=== PATIENT | male | born 1940 | race Caucasian/White ===

== ENCOUNTER 2024-04-08 13:50 | Inpatient (IN) | payer MEDICARE, OTHER ==
[2024-04-08] VITALS (33 sets, daily range): BP systolic 67–159; BP diastolic 41–144; TEMP 97.2–97.8; O2SAT 84–100
[~2024-04-08] VITALS: Ht 170.2 cm; Wt 72.6 kg
[2024-04-08] MEDS: ALBUTEROL SULFATE 2.5 MG/3 ML NEBU NEB ONE (13:58)
[2024-04-08] MEDS: IPRATROPIUM BROMIDE 0.5 MG/2.5 ML NEBU NEB ONE (13:58)
[2024-04-08] MEDS ORDERED: IPRATROPIUM BROMIDE 0.5 MG/2.5 ML NEBU ONE ×2 (14:03)
[2024-04-08] MEDS ORDERED: ALBUTEROL SULFATE 2.5 MG/3 ML NEBU ONE (14:03)
[2024-04-08] MEDS ORDERED: methylPREDNISolone SOD SUCC 125 MG/2 ML VIAL ONE (14:08)
[2024-04-08] MEDS: methylPREDNISolone SOD SUCC 125 MG/2 ML VIAL IV ONE (14:08)
[2024-04-08 14:12] LABS: BASOPHILS # (AUTO) 0.2 K/UL (0.0-0.2); EOSINOPHILS # (AUTO) 0.1 K/uL (0.0-0.7); EOSINOPHILS % (AUTO) 0.6 % (0.0-7.0); HEMOGLOBIN 12.2 g/dL (12.5-16.3); LYMPHOCYTES # (AUTO) 3.4 K/uL (0.8-4.8); MEAN CORPUSCULAR HEMOGLOBIN 30.5 uug (23.8-33.4); MEAN CORPUSCULAR HGB CONC 32 g/dL (32.5-36.3); MEAN CORPUSCULAR VOLUME 95.3 fL (73.0-96.2); MONOCYTES # (AUTO) 1.5 K/uL (0.1-1.30); MONOCYTES % (AUTO) 6.7 % (0.0-11.0); NEUTROPHILS # (AUTO) 17.4 K/uL (1.8-8.9); NEUTROPHILS % (AUTO) 76.7 % (38.5-71.5); PLATELET COUNT (AUTO) 241 K/uL (152-348); RED BLOOD CELL COUNT(AUTO) 3.98 MIL/uL (4.06-5.63); RED CELL DISTRIBUTION WIDTH 14.6 % (12.1-16.2); WHITE BLOOD COUNT (AUTO) 22.6 K/uL (3.6-10.2)
[2024-04-08] MEDS: VANCOMYCIN IV 1,000 MG in IV DEXTROSE 5% 250 ML IV ONE (14:15)
[2024-04-08 14:38] LABS: ALANINE AMINOTRANSFERASE 12 U/L (16-63); ALBUMIN 2.6 g/dL (3.4-5.0); ALKALINE PHOSPHATASE 214 U/L (50-136); ASPARTATE AMINOTRANSFERASE 8 U/L (15-37); BILIRUBIN,TOTAL 0.3 mg/dL (0.2-1.0); CALCIUM 7.7 mg/dL (8.5-10.1); CARBON DIOXIDE 19 mmol/L (21-32); CHLORIDE 109 mmol/L (98-107); CREATININE 1.4 mg/dL (0.6-1.3); GLUCOSE 173 mg/dL (74-106); SODIUM SERUM 142 mmol/L (136-145); TOTAL PROTEIN, SERUM 6.2 g/dL (6.4-8.2); UREA NITROGEN, BLOOD 31 mg/dL (7-18)
[2024-04-08] MEDS: IV NORMAL SALINE 1000 ML BAG IV ONE (14:42)
[2024-04-08] MEDS ORDERED: PIPERACILLIN SODIUM/TAZO 3.375 GM VIAL ONE (14:43)
[2024-04-08 14:44] LABS: DIFFERENTIAL COMMENT 1
[2024-04-08] MEDS ORDERED: VANCOMYCIN 1000 MG VIAL ONE (14:44)
[2024-04-08 14:45] LABS: BILIRUBIN,DIRECT < 0.1 mg/dL (0.0-0.2)
[2024-04-08] MEDS ORDERED: MELA3CAP2 PO (14:45)
[2024-04-08] MEDS ORDERED: POLY17PO4 PO (14:45)
[2024-04-08] MEDS ORDERED: PHEN300C6 PO (14:45)
[2024-04-08] MEDS ORDERED: ESOM20CA PO (14:45)
[2024-04-08] MEDS ORDERED: LISI2.5T14 PO (14:45)
[2024-04-08] MEDS ORDERED: ACET-2605 PO (14:45)
[2024-04-08] MEDS ORDERED: SENN-22 PO (14:45)
[2024-04-08] MEDS ORDERED: TERA5CAP4 PO (14:45)
[2024-04-08] MEDS ORDERED: CHOL10005 PO (14:45)
[2024-04-08] MEDS ORDERED: AMIN30LI27 PO (14:45)
[2024-04-08] MEDS ORDERED: LEVO50TA8 PO (14:45)
[2024-04-08] MEDS ORDERED: ATOR40TA PO (14:45)
[2024-04-08] MEDS ORDERED: CYAN-28 PO (14:45)
[2024-04-08] MEDS ORDERED: MINE3.5O13 EACHEYE (14:45)
[2024-04-08] MEDS ORDERED: POLY50DR EACHEYE (14:45)
[2024-04-08] MEDS ORDERED: BISA10SU61 RC (14:45)
[2024-04-08] MEDS ORDERED: ASPI81TA31 PO (14:45)
[2024-04-08] MEDS ORDERED: CALC500T13 PO (14:45)
[2024-04-08] MEDS ORDERED: FLUT16SP16 BNOSTRILS (14:45)
[2024-04-08] MEDS ORDERED: GABA-532 PO (14:45)
[2024-04-08] MEDS ORDERED: TOLT4CAP PO (14:45)
[2024-04-08] MEDS ORDERED: FOLI1TAB27 PO (14:45)
[2024-04-08 14:46] LABS: POTASSIUM 3.8 mmol/L (3.5-5.1)
[2024-04-08 14:48] LABS: LACTIC ACID 6.1 mmol/L (0.4-2.0)
[2024-04-08] MEDS: PIPERACILLIN SODIUM/TAZOBACTAM 3.375 G in IV DEXTROSE 5% 50 ML IV ONE (15:12)
[2024-04-08] MEDS ORDERED: SWABABLE VALVE TRANSFER SET EA MC ONE (16:03)
[2024-04-08] MEDS ORDERED: IV NORMAL SALINE 250 ML IV ONE (16:03)
[2024-04-08] MEDS ORDERED: IOHEXOL 350 100 ML INFUS..BTL ONE (16:03)
[2024-04-08] MEDS: ENOXAPARIN SODIUM 80 MG/0.8 ML DISP.SYRIN SQ ONE (16:14)
[2024-04-08] MEDS ORDERED: ENOXAPARIN SODIUM 80 MG/0.8 ML DISP.SYRIN SQ ONE (16:14)
[2024-04-08 18:17] LABS: ABG BASE EXCESS -12.2 mmol/L (-2.0-2.0); ABG HCO3 13.8 mmol/L (22.0-26.0); ABG PCO2 32.1 mmHg (35.0-48.0); ABG PH 7.252 (7.340-7.440); ABG PO2 60.9 mmHg (75.0-100.0); ABG SITE LEFT BRACHIAL; ABG TOTAL HEMOGLOBIN 12.3 G/dL (14.0-18.0); AaDO2 87.9 mmHg; COHb 1.6 % (0.0-3.9); MetHb 0.2 % (0.0-1.5); O2Hb 88.6 % (94.0-97.0)
[2024-04-08 18:30] LABS: *BILIRUBIN,URIN NEGATIVE (NEGATIVE); *CLARITY,URINE CLEAR (CLEAR); *COLOR,URINE YELLOW (YELLOW); *KETONES,URINE TRACE (NEGATIVE); *PROTEIN,URINE 1+ (NEGATIVE); *UROBILINOGEN,URINE 0.2 E.U./dl (NORMAL); LEUKOCYTE ESTERASE ,URINE 1+ (NEGATIVE); NITRITE, URINE NEGATIVE (NEGATIVE); PH,URINE 5.5 (5.0-8.0); UGLUCOSE NEGATIVE (NEGATIVE)
[2024-04-08] MEDS ORDERED: ESCI10TA PO (18:32)
[2024-04-08 18:42] LABS: *BLOOD, URINE NEGATIVE (NEGATIVE)
[2024-04-08 18:45] LABS: RBC,URINE 0-3 /HPF (0-3)
[2024-04-08] MEDS: NOREPINEPHRINE BITARTRATE 32 MG in IV NORMAL SALINE 218 ML IV PRN (19:44)
[2024-04-08] MEDS ORDERED: LEVALBUTEROL HCL NEB 0.63 MG/3 ML NEBU NEB PRN (21:45)
[2024-04-08] MEDS ORDERED: NOREPINEPHRINE BITARTRATE 8 MG in IV NORMAL SALINE 242 ML IV PRN (22:00)
[2024-04-08] MEDS ORDERED: DEXTROSE 50% 50 ML DISP.SYRIN IV PRN (22:00)
[2024-04-08] MEDS ORDERED: MEROPENEM 500MG/NS 50ML PB ***ER PYXIS ONLY IV ONE (23:01)
[2024-04-08] MEDS ORDERED: METRONIDAZOLE 500 MG/NS 100ML 100 ML IV ONE (23:01)
[2024-04-08] MEDS ORDERED: PHENYTOIN SODIUM 100 MG/2 ML VIAL IV ONE (23:02)
[2024-04-08] MEDS: PHENYTOIN SODIUM 100 MG/2 ML VIAL IV SCH (23:09)
[2024-04-08] MEDS: METRONIDAZOLE 500 MG/NS 100ML 500 MG in PREMIXED 1 EACH IV SCH (23:10)
[2024-04-08] MEDS: ONDANSETRON 4 MG/2 ML VIAL IV PRN (23:45)
[2024-04-09] VITALS (104 sets, daily range): BP systolic 61–199; BP diastolic 34–87; TEMP 98.5–99; O2SAT 85–100
[2024-04-09] MEDS: MEROPENEM 500 MG in IV NORMAL SALINE 50 ML IV SCH ×2 (00:29→17:13)
[2024-04-09] MEDS: BLOOD SUGAR DIAGNOSTIC 1 EACH STRIP VI SCH (00:34)
[2024-04-09 05:43] LABS: ABG BASE EXCESS -10.3 mmol/L (-2.0-2.0); ABG HCO3 14.2 mmol/L (22.0-26.0); ABG PCO2 27.6 mmHg (35.0-48.0); ABG PH 7.329 (7.340-7.440); ABG PO2 164.1 mmHg (75.0-100.0); ABG SITE LEFT BRACHIAL; ABG TOTAL HEMOGLOBIN 12.2 G/dL (14.0-18.0); COHb 1.8 % (0.0-3.9); MetHb 0.3 % (0.0-1.5); O2Hb 97.2 % (94.0-97.0)
[2024-04-09] MEDS ORDERED: PHENYTOIN SODIUM 100 MG/2 ML VIAL IV ONE (06:01)
[2024-04-09] MEDS ORDERED: MEROPENEM 500MG/NS 50ML PB ***ER PYXIS ONLY IV ONE (06:01)
[2024-04-09] MEDS ORDERED: METRONIDAZOLE 500 MG/NS 100ML 100 ML IV ONE (06:01)
[2024-04-09 06:04] LABS: BASOPHILS # (AUTO) 0.2 K/UL (0.0-0.2); BASOPHILS % (AUTO) 1.1 % (0.0-2.0); HEMATOCRIT 38.6 % (36.7-47.1); HEMOGLOBIN 12.5 g/dL (12.5-16.3); LYMPHOCYTES # (AUTO) 1.3 K/uL (0.8-4.8); LYMPHOCYTES % (AUTO) 8.2 % (20.5-51.5); MEAN CORPUSCULAR HEMOGLOBIN 30.4 uug (23.8-33.4); MEAN CORPUSCULAR HGB CONC 33 g/dL (32.5-36.3); MEAN CORPUSCULAR VOLUME 93.7 fL (73.0-96.2); MONOCYTES # (AUTO) 0.7 K/uL (0.1-1.30); MONOCYTES % (AUTO) 4.5 % (0.0-11.0); NEUTROPHILS % (AUTO) 86.2 % (38.5-71.5); PLATELET COUNT (AUTO) 250 K/uL (152-348); RED BLOOD CELL COUNT(AUTO) 4.12 MIL/uL (4.06-5.63); RED CELL DISTRIBUTION WIDTH 14.5 % (12.1-16.2); WHITE BLOOD COUNT (AUTO) 16.2 K/uL (3.6-10.2)
[2024-04-09 06:11] LABS: DIFFERENTIAL COMMENT 1
[2024-04-09 06:24] LABS: ALANINE AMINOTRANSFERASE 24 U/L (16-63); ALBUMIN 2.3 g/dL (3.4-5.0); ALKALINE PHOSPHATASE 168 U/L (50-136); ASPARTATE AMINOTRANSFERASE 15 U/L (15-37); BILIRUBIN,TOTAL 0.2 mg/dL (0.2-1.0); CALCIUM 7.9 mg/dL (8.5-10.1); CARBON DIOXIDE 17 mmol/L (21-32); CHLORIDE 111 mmol/L (98-107); CHOLESTEROL 95 mg/dL (<200); GLUCOSE 208 mg/dL (74-106); HDL CHOLESTEROL 35 mg/dL (40-60); IRON, SERUM 10 ug/dL (50-175); PHOSPHOROUS 4.7 mg/dL (2.5-4.9); POTASSIUM 4.8 mmol/L (3.5-5.1); SODIUM SERUM 144 mmol/L (136-145); TOTAL PROTEIN, SERUM 5.8 g/dL (6.4-8.2); TRIGLYCERIDES 194 MG/DL (30-150); UREA NITROGEN, BLOOD 43 mg/dL (7-18)
[2024-04-09 06:34] LABS: PHENYTOIN (DILANTIN) 4.1 ug/mL (10.0-20.0)
[2024-04-09] MEDS: IV D5/ 0.9% NACL 1,000 ML IV PRN (07:05)
[2024-04-09 09:08] LABS: *OCCULT BLOOD STOOL POSITIVE (NEGATIVE)
[2024-04-09 09:29] LABS: AMYLASE 947 U/L (25-115); LIPASE 29 U/L (16-77)
[2024-04-09] MEDS: PANTOPRAZOLE SODIUM 40 MG VIAL IV SCH (10:06)
[2024-04-09] MEDS: VANCOMYCIN HCL 750 MG in IV DEXTROSE 5% 250 ML IV ONE (10:07)
[2024-04-09] MEDS: HEPARIN SODIUM,PORCINE 5,000 UNITS/ML VIAL SQ SCH (10:08)
[2024-04-09] MEDS: INSULIN REGULAR, HUMAN 300 UNIT/3 ML VIAL SQ PRN (12:39)
[2024-04-09] MEDS: NOREPINEPHRINE BITARTRATE 32 MG in IV NORMAL SALINE 218 ML IV PRN (13:19)
[2024-04-09] MEDS: IV NORMAL SALINE 500 ML IV ONE (17:18)
[2024-04-09] MEDS: NOREPINEPHRINE BITARTRATE 8 MG in IV NORMAL SALINE 242 ML IV PRN (18:47)
[2024-04-10] VITALS (79 sets, daily range): BP systolic 90–158; BP diastolic 39–75; TEMP 97.7–99.5; O2SAT 91–99
[2024-04-10 05:02] LABS: BASOPHILS % (AUTO) 0.3 % (0.0-2.0); EOSINOPHILS % (AUTO) 0.1 % (0.0-7.0); HEMATOCRIT 28.3 % (36.7-47.1); HEMOGLOBIN 9.3 g/dL (12.5-16.3); LYMPHOCYTES # (AUTO) 1.1 K/uL (0.8-4.8); LYMPHOCYTES % (AUTO) 8.3 % (20.5-51.5); MEAN CORPUSCULAR HEMOGLOBIN 31.1 uug (23.8-33.4); MEAN CORPUSCULAR HGB CONC 33 g/dL (32.5-36.3); MEAN CORPUSCULAR VOLUME 94.2 fL (73.0-96.2); MONOCYTES # (AUTO) 0.7 K/uL (0.1-1.30); NEUTROPHILS # (AUTO) 11.7 K/uL (1.8-8.9); NEUTROPHILS % (AUTO) 86.3 % (38.5-71.5); PLATELET COUNT (AUTO) 117 K/uL (152-348); RED CELL DISTRIBUTION WIDTH 14.6 % (12.1-16.2); WHITE BLOOD COUNT (AUTO) 13.5 K/uL (3.6-10.2)
[2024-04-10 05:47] LABS: DIFFERENTIAL COMMENT 1
[2024-04-10 05:56] LABS: CALCIUM 6.5 mg/dL (8.5-10.1); CARBON DIOXIDE 17 mmol/L (21-32); CHLORIDE 118 mmol/L (98-107); CREATININE 1.7 mg/dL (0.6-1.3); MAGNESIUM 1.7 mg/dL (1.8-2.4); PHOSPHOROUS 3.1 mg/dL (2.5-4.9); POTASSIUM 3.8 mmol/L (3.5-5.1); SODIUM SERUM 148 mmol/L (136-145); UREA NITROGEN, BLOOD 44 mg/dL (7-18); VANCOMYCIN,RANDOM 9.7 ug/mL (20.0-30.0)
[2024-04-10 06:04] LABS: GLUCOSE 452 mg/dL (74-106)
[2024-04-10 06:33] LABS: ABG BASE EXCESS -8.2 mmol/L (-2.0-2.0); ABG HCO3 16.2 mmol/L (22.0-26.0); ABG PCO2 29.7 mmHg (35.0-48.0); ABG PH 7.355 (7.340-7.440); ABG PO2 120.4 mmHg (75.0-100.0); ABG SITE RIGHT RADIAL; ABG TOTAL HEMOGLOBIN 10.6 G/dL (14.0-18.0); AaDO2 98.3 mmHg; COHb 1.2 % (0.0-3.9); MetHb 0.2 % (0.0-1.5); O2Hb 97.1 % (94.0-97.0)
[2024-04-10] MEDS: VANCOMYCIN IV 1,000 MG in IV DEXTROSE 5% 250 ML IV ONE (09:08)
[2024-04-10] MEDS: MAGNESIUM SULFATE/D5W 100 ML IV SCH (09:08)
[2024-04-11] VITALS (77 sets, daily range): BP systolic 106–181; BP diastolic 42–81; TEMP 97.7–98.9; O2SAT 90–99
[2024-04-11 05:17] LABS: BASOPHILS % (AUTO) 0.2 % (0.0-2.0); EOSINOPHILS # (AUTO) 0.1 K/uL (0.0-0.7); EOSINOPHILS % (AUTO) 0.5 % (0.0-7.0); HEMATOCRIT 29.1 % (36.7-47.1); HEMOGLOBIN 9.5 g/dL (12.5-16.3); LYMPHOCYTES # (AUTO) 0.9 K/uL (0.8-4.8); LYMPHOCYTES % (AUTO) 7.3 % (20.5-51.5); MEAN CORPUSCULAR HGB CONC 33 g/dL (32.5-36.3); MEAN CORPUSCULAR VOLUME 94.7 fL (73.0-96.2); MONOCYTES # (AUTO) 0.5 K/uL (0.1-1.30); MONOCYTES % (AUTO) 4.2 % (0.0-11.0); NEUTROPHILS # (AUTO) 10.9 K/uL (1.8-8.9); NEUTROPHILS % (AUTO) 87.8 % (38.5-71.5); PLATELET COUNT (AUTO) 102 K/uL (152-348); RED BLOOD CELL COUNT(AUTO) 3.07 MIL/uL (4.06-5.63); RED CELL DISTRIBUTION WIDTH 14.9 % (12.1-16.2); WHITE BLOOD COUNT (AUTO) 12.4 K/uL (3.6-10.2)
[2024-04-11 05:30] LABS: DIFFERENTIAL COMMENT 1
[2024-04-11 05:38] LABS: ALANINE AMINOTRANSFERASE 13 U/L (16-63); ALBUMIN 1.7 g/dL (3.4-5.0); ALKALINE PHOSPHATASE 115 U/L (50-136); AMYLASE 73 U/L (25-115); ASPARTATE AMINOTRANSFERASE 13 U/L (15-37); BILIRUBIN,TOTAL 0.3 mg/dL (0.2-1.0); CALCIUM 7.7 mg/dL (8.5-10.1); CARBON DIOXIDE 21 mmol/L (21-32); CHLORIDE 117 mmol/L (98-107); CREATININE 1.7 mg/dL (0.6-1.3); GLUCOSE 145 mg/dL (74-106); LIPASE 11 U/L (16-77); MAGNESIUM 2.6 mg/dL (1.8-2.4); PHOSPHOROUS 2.6 mg/dL (2.5-4.9); POTASSIUM 3.6 mmol/L (3.5-5.1); SODIUM SERUM 149 mmol/L (136-145); TOTAL PROTEIN, SERUM 5.2 g/dL (6.4-8.2); UREA NITROGEN, BLOOD 42 mg/dL (7-18); VANCOMYCIN,RANDOM 17.5 ug/mL (20.0-30.0)
[2024-04-11 05:40] LABS: BILIRUBIN,DIRECT < 0.1 mg/dL (0.0-0.2)
[2024-04-11 05:50] LABS: ABG BASE EXCESS -6.1 mmol/L (-2.0-2.0); ABG HCO3 18.5 mmol/L (22.0-26.0); ABG PH 7.366 (7.340-7.440); ABG PO2 107.1 mmHg (75.0-100.0); ABG SITE RIGHT RADIAL; AaDO2 97.8 mmHg; COHb 1.3 % (0.0-3.9); MetHb 0.2 % (0.0-1.5); O2Hb 96.4 % (94.0-97.0)
[2024-04-11] MEDS: IV D5W 1000ML 1,000 ML IV ONE (07:15)
[2024-04-11] MEDS: FUROSEMIDE 40 MG/4 ML VIAL IV SCH (09:35)
[2024-04-11] MEDS: ALBUMIN HUMAN 25% 100 ML IV SCH (09:36)
[2024-04-11] MEDS: VANCOMYCIN IV 1,000 MG in IV DEXTROSE 5% 250 ML IV ONE (21:04)
[2024-04-12] VITALS (31 sets, daily range): BP systolic 104–169; BP diastolic 47–74; TEMP 97.9–99.9; O2SAT 88–99
[2024-04-12 05:56] LABS: BASOPHILS % (AUTO) 0.3 % (0.0-2.0); EOSINOPHILS # (AUTO) 0.2 K/uL (0.0-0.7); HEMATOCRIT 27.4 % (36.7-47.1); HEMOGLOBIN 9.1 g/dL (12.5-16.3); LYMPHOCYTES # (AUTO) 0.9 K/uL (0.8-4.8); LYMPHOCYTES % (AUTO) 8.8 % (20.5-51.5); MEAN CORPUSCULAR HEMOGLOBIN 30.9 uug (23.8-33.4); MEAN CORPUSCULAR HGB CONC 33 g/dL (32.5-36.3); MEAN CORPUSCULAR VOLUME 93.4 fL (73.0-96.2); MONOCYTES # (AUTO) 0.7 K/uL (0.1-1.30); MONOCYTES % (AUTO) 6.8 % (0.0-11.0); NEUTROPHILS # (AUTO) 8.8 K/uL (1.8-8.9); NEUTROPHILS % (AUTO) 82.1 % (38.5-71.5); PLATELET COUNT (AUTO) 86 K/uL (152-348); RED BLOOD CELL COUNT(AUTO) 2.93 MIL/uL (4.06-5.63); RED CELL DISTRIBUTION WIDTH 14.7 % (12.1-16.2); WHITE BLOOD COUNT (AUTO) 10.7 K/uL (3.6-10.2)
[2024-04-12 06:01] LABS: DIFFERENTIAL COMMENT 1
[2024-04-12 06:07] LABS: CALCIUM 7.8 mg/dL (8.5-10.1); CARBON DIOXIDE 24 mmol/L (21-32); CHLORIDE 113 mmol/L (98-107); CREATININE 1.7 mg/dL (0.6-1.3); GLUCOSE 136 mg/dL (74-106); MAGNESIUM 2.2 mg/dL (1.8-2.4); PHOSPHOROUS 2.3 mg/dL (2.5-4.9); POTASSIUM 3.1 mmol/L (3.5-5.1); SODIUM SERUM 147 mmol/L (136-145); UREA NITROGEN, BLOOD 37 mg/dL (7-18); VANCOMYCIN,RANDOM 26.6 ug/mL (20.0-30.0)
[2024-04-12] MEDS: ALBUTEROL SULFATE 2.5 MG/3 ML NEBU NEB PRN (07:52)
[2024-04-12] MEDS: IPRATROPIUM BROMIDE 0.5 MG/2.5 ML NEBU NEB PRN (07:52)
[2024-04-12 10:55] LABS: LYMPHOCYTES % (MANUAL) 0 % (20-40); NEUTROPHILS % (MANUAL) 0 % (42-75)
[2024-04-12] MEDS: POTASSIUM PHOSPHATE MM 15 MMOL in IV NORMAL SALINE 250 ML IV ONE (11:15)
[2024-04-12] MEDS ORDERED: POTASSIUM PHOSPHATE MM 7.5 MMOL in IV NORMAL SALINE 97.5 ML IV ONE (12:00)
[2024-04-12] MEDS: IPRATROPIUM BROMIDE 0.5 MG/2.5 ML NEBU NEB SCH (14:49)
[2024-04-12] MEDS: ALBUTEROL SULFATE 1.25 MG/3 ML NEBU NEB SCH (14:49)
[2024-04-12] MEDS: ACETYLCYSTEINE 10% 4ML VIAL NEB SCH (14:49)
[2024-04-12] MEDS: IV D5W 1000ML 1,000 ML IV PRN (16:45)
[2024-04-12] MEDS: MEROPENEM 1 G in IV NORMAL SALINE 100 ML IV SCH (18:10)
[2024-04-13] VITALS (35 sets, daily range): BP systolic 93–161; BP diastolic 44–78; TEMP 98.6–99.7; O2SAT 90–99
[2024-04-13 05:38] LABS: BASOPHILS % (AUTO) 0.2 % (0.0-2.0); EOSINOPHILS # (AUTO) 0.1 K/uL (0.0-0.7); EOSINOPHILS % (AUTO) 1.5 % (0.0-7.0); HEMATOCRIT 29.8 % (36.7-47.1); HEMOGLOBIN 9.8 g/dL (12.5-16.3); LYMPHOCYTES # (AUTO) 1.1 K/uL (0.8-4.8); LYMPHOCYTES % (AUTO) 14.4 % (20.5-51.5); MEAN CORPUSCULAR HEMOGLOBIN 30.9 uug (23.8-33.4); MEAN CORPUSCULAR HGB CONC 33 g/dL (32.5-36.3); MEAN CORPUSCULAR VOLUME 93.9 fL (73.0-96.2); MONOCYTES # (AUTO) 0.9 K/uL (0.1-1.30); MONOCYTES % (AUTO) 11.3 % (0.0-11.0); NEUTROPHILS # (AUTO) 5.5 K/uL (1.8-8.9); NEUTROPHILS % (AUTO) 72.6 % (38.5-71.5); PLATELET COUNT (AUTO) 83 K/uL (152-348); RED BLOOD CELL COUNT(AUTO) 3.17 MIL/uL (4.06-5.63); RED CELL DISTRIBUTION WIDTH 14.8 % (12.1-16.2); WHITE BLOOD COUNT (AUTO) 7.5 K/uL (3.6-10.2)
[2024-04-13 05:57] LABS: ALANINE AMINOTRANSFERASE 11 U/L (16-63); ALBUMIN 2.2 g/dL (3.4-5.0); ALKALINE PHOSPHATASE 89 U/L (50-136); ASPARTATE AMINOTRANSFERASE < 5 U/L (15-37); BILIRUBIN,TOTAL 0.4 mg/dL (0.2-1.0); CALCIUM 8.1 mg/dL (8.5-10.1); CARBON DIOXIDE 24 mmol/L (21-32); CHLORIDE 113 mmol/L (98-107); CREATININE 1.7 mg/dL (0.6-1.3); GLUCOSE 139 mg/dL (74-106); MAGNESIUM 2.2 mg/dL (1.8-2.4); PHOSPHOROUS 3.5 mg/dL (2.5-4.9); POTASSIUM 3.3 mmol/L (3.5-5.1); SODIUM SERUM 148 mmol/L (136-145); TOTAL PROTEIN, SERUM 5.7 g/dL (6.4-8.2); UREA NITROGEN, BLOOD 40 mg/dL (7-18); VANCOMYCIN,RANDOM 17.3 ug/mL (20.0-30.0)
[2024-04-13 06:04] LABS: DIFFERENTIAL COMMENT 1
[2024-04-13] MEDS: VANCOMYCIN IV 1,000 MG in IV DEXTROSE 5% 250 ML IV SCH (09:07)
[2024-04-13 11:32] LABS: LYMPHOCYTES % (MANUAL) 0 % (20-40); NEUTROPHILS % (MANUAL) 0 % (42-75)
[2024-04-13] MEDS: POTASSIUM CHLORIDE 50 ML IV SCH (12:18)
[2024-04-13] MEDS: FUROSEMIDE 20 MG/2 ML VIAL IV ONE (20:36)
[2024-04-14] VITALS (35 sets, daily range): BP systolic 102–162; BP diastolic 42–91; TEMP 98.2–100.3; O2SAT 90–98
[2024-04-14] MEDS ORDERED: ALBUTEROL SULFATE 2.5 MG/3 ML NEBU ONE (00:34)
[2024-04-14] MEDS ORDERED: IPRATROPIUM BROMIDE 0.5 MG/2.5 ML NEBU ONE (00:35)
[2024-04-14 04:47] LABS: BASOPHILS # (AUTO) 0.1 K/UL (0.0-0.2); BASOPHILS % (AUTO) 0.9 % (0.0-2.0); EOSINOPHILS # (AUTO) 0.2 K/uL (0.0-0.7); EOSINOPHILS % (AUTO) 2.5 % (0.0-7.0); HEMATOCRIT 26.1 % (36.7-47.1); HEMOGLOBIN 8.7 g/dL (12.5-16.3); LYMPHOCYTES # (AUTO) 1.1 K/uL (0.8-4.8); MEAN CORPUSCULAR HEMOGLOBIN 31.2 uug (23.8-33.4); MEAN CORPUSCULAR HGB CONC 34 g/dL (32.5-36.3); NEUTROPHILS % (AUTO) 68.3 % (38.5-71.5); PLATELET COUNT (AUTO) 77 K/uL (152-348); RED BLOOD CELL COUNT(AUTO) 2.81 MIL/uL (4.06-5.63); RED CELL DISTRIBUTION WIDTH 14.2 % (12.1-16.2); WHITE BLOOD COUNT (AUTO) 7.3 K/uL (3.6-10.2)
[2024-04-14 04:53] LABS: DIFFERENTIAL COMMENT 1
[2024-04-14 04:54] LABS: LYMPHOCYTES % (AUTO) 15.8 % (20.5-51.5); MONOCYTES % (AUTO) 12.5 % (0.0-11.0)
[2024-04-14 04:58] LABS: CALCIUM 7.7 mg/dL (8.5-10.1); CARBON DIOXIDE 26 mmol/L (21-32); CHLORIDE 112 mmol/L (98-107); CREATININE 1.6 mg/dL (0.6-1.3); GLUCOSE 130 mg/dL (74-106); POTASSIUM 3.2 mmol/L (3.5-5.1); SODIUM SERUM 147 mmol/L (136-145); UREA NITROGEN, BLOOD 35 mg/dL (7-18)
[2024-04-14 05:02] LABS: MAGNESIUM 1.9 mg/dL (1.8-2.4); PHOSPHOROUS 2.9 mg/dL (2.5-4.9)
[2024-04-14] MEDS: POTASSIUM CHLORIDE 50 ML IV SCH (12:21)
[2024-04-14] MEDS: MORPHINE SULFATE 2 MG/1 ML DISP.SYRIN IV PRN (15:20)
[2024-04-14] MEDS: IV D5W 1000ML 1,000 ML IV PRN (15:34)
[2024-04-14] MEDS: ACETAMINOPHEN 650 MG SUPP.RECT RC PRN (16:03)
[2024-04-14] MEDS ORDERED: VANCOMYCIN IV 1,000 MG in IV DEXTROSE 5% 250 ML IV SCH (21:00)
[2024-04-15] VITALS (33 sets, daily range): BP systolic 117–165; BP diastolic 49–65; TEMP 98.7–99.5; O2SAT 90–98
[2024-04-15 04:55] LABS: BASOPHILS % (AUTO) 0.5 % (0.0-2.0); EOSINOPHILS # (AUTO) 0.3 K/uL (0.0-0.7); EOSINOPHILS % (AUTO) 3.7 % (0.0-7.0); HEMATOCRIT 26.7 % (36.7-47.1); HEMOGLOBIN 8.8 g/dL (12.5-16.3); LYMPHOCYTES # (AUTO) 1.3 K/uL (0.8-4.8); LYMPHOCYTES % (AUTO) 15.9 % (20.5-51.5); MEAN CORPUSCULAR HEMOGLOBIN 30.7 uug (23.8-33.4); MEAN CORPUSCULAR HGB CONC 33 g/dL (32.5-36.3); MEAN CORPUSCULAR VOLUME 93.3 fL (73.0-96.2); MONOCYTES # (AUTO) 0.9 K/uL (0.1-1.30); MONOCYTES % (AUTO) 11.5 % (0.0-11.0); NEUTROPHILS # (AUTO) 5.4 K/uL (1.8-8.9); NEUTROPHILS % (AUTO) 68.4 % (38.5-71.5); PLATELET COUNT (AUTO) 86 K/uL (152-348); RED BLOOD CELL COUNT(AUTO) 2.87 MIL/uL (4.06-5.63); RED CELL DISTRIBUTION WIDTH 14.6 % (12.1-16.2); WHITE BLOOD COUNT (AUTO) 7.9 K/uL (3.6-10.2)
[2024-04-15 05:01] LABS: DIFFERENTIAL COMMENT 1
[2024-04-15 05:21] LABS: CALCIUM 7.8 mg/dL (8.5-10.1); CARBON DIOXIDE 26 mmol/L (21-32); CHLORIDE 109 mmol/L (98-107); CREATININE 1.5 mg/dL (0.6-1.3); GLUCOSE 144 mg/dL (74-106); MAGNESIUM 1.9 mg/dL (1.8-2.4); PHOSPHOROUS 2.5 mg/dL (2.5-4.9); POTASSIUM 3.2 mmol/L (3.5-5.1); SODIUM SERUM 143 mmol/L (136-145); UREA NITROGEN, BLOOD 31 mg/dL (7-18)
[2024-04-15] MEDS ORDERED: MEROPENEM 1GM/NS 100ML IVPB **ER PYXIS ONLY IV ONE (06:24)
[2024-04-15] MEDS: PHENYTOIN SODIUM 100 MG/2 ML VIAL IV SCH (06:32)
[2024-04-15] MEDS: POTASSIUM CHLORIDE 50 ML IV SCH (08:39)
[2024-04-15 16:02] LABS: BAND % (MANUAL) 1 % (0-10); EOSINOPHILS % (MANUAL) 4 % (0-8); LYMPHOCYTES % (MANUAL) 16 % (20-40); MONOCYTES % (MANUAL) 10 % (2-10); NEUTROPHILS % (MANUAL) 69 % (42-75)
[2024-04-15 16:04] LABS: ANISOCYTOSIS 1+; PLATELET ESTIMATE DECREASED
[2024-04-15] MEDS: ACETYLCYSTEINE 10% 4ML VIAL NEB SCH (19:18)
[2024-04-16] VITALS (34 sets, daily range): BP systolic 114–161; BP diastolic 46–96; TEMP 98.5–99.1; O2SAT 90–99
[2024-04-16 05:06] LABS: BASOPHILS % (AUTO) 0.4 % (0.0-2.0); EOSINOPHILS # (AUTO) 0.4 K/uL (0.0-0.7); EOSINOPHILS % (AUTO) 3.7 % (0.0-7.0); HEMATOCRIT 25.6 % (36.7-47.1); HEMOGLOBIN 8.4 g/dL (12.5-16.3); LYMPHOCYTES # (AUTO) 1.7 K/uL (0.8-4.8); LYMPHOCYTES % (AUTO) 14.5 % (20.5-51.5); MEAN CORPUSCULAR HEMOGLOBIN 30.6 uug (23.8-33.4); MEAN CORPUSCULAR HGB CONC 33 g/dL (32.5-36.3); MEAN CORPUSCULAR VOLUME 93.1 fL (73.0-96.2); MONOCYTES # (AUTO) 0.9 K/uL (0.1-1.30); MONOCYTES % (AUTO) 7.3 % (0.0-11.0); NEUTROPHILS # (AUTO) 8.8 K/uL (1.8-8.9); NEUTROPHILS % (AUTO) 74.1 % (38.5-71.5); PLATELET COUNT (AUTO) 108 K/uL (152-348); RED BLOOD CELL COUNT(AUTO) 2.75 MIL/uL (4.06-5.63); RED CELL DISTRIBUTION WIDTH 14.5 % (12.1-16.2); WHITE BLOOD COUNT (AUTO) 11.9 K/uL (3.6-10.2)
[2024-04-16 05:56] LABS: CALCIUM 7.6 mg/dL (8.5-10.1); CARBON DIOXIDE 26 mmol/L (21-32); CHLORIDE 105 mmol/L (98-107); CREATININE 1.4 mg/dL (0.6-1.3); GLUCOSE 121 mg/dL (74-106); MAGNESIUM 1.6 mg/dL (1.8-2.4); PHOSPHOROUS 2.3 mg/dL (2.5-4.9); POTASSIUM 3.3 mmol/L (3.5-5.1); SODIUM SERUM 139 mmol/L (136-145); UREA NITROGEN, BLOOD 27 mg/dL (7-18)
[2024-04-16 06:00] LABS: C-REACTIVE PROTEIN 15.08 mg/dL (0.00-0.30)
[2024-04-16 06:02] LABS: DIFFERENTIAL COMMENT 1
[2024-04-16] MEDS: POTASSIUM CHLORIDE 50 ML IV SCH (08:07)
[2024-04-16] MEDS: MAGNESIUM SULFATE/D5W 100 ML IV SCH (11:30)
[2024-04-16] MEDS: BISACODYL 10 MG SUPP.RECT RC ONE (13:15)
[2024-04-16] MEDS: SODIUM PHOSPHATE MM 15 MMOL in IV NORMAL SALINE 250 ML IV ONE (15:59)
[2024-04-17] VITALS (32 sets, daily range): BP systolic 116–168; BP diastolic 49–76; TEMP 97.8–98.2; O2SAT 91–100
[2024-04-17 05:07] LABS: BASOPHILS # (AUTO) 0.1 K/UL (0.0-0.2); BASOPHILS % (AUTO) 0.5 % (0.0-2.0); EOSINOPHILS # (AUTO) 0.4 K/uL (0.0-0.7); EOSINOPHILS % (AUTO) 2.9 % (0.0-7.0); HEMATOCRIT 25.2 % (36.7-47.1); HEMOGLOBIN 8.3 g/dL (12.5-16.3); LYMPHOCYTES # (AUTO) 1.6 K/uL (0.8-4.8); LYMPHOCYTES % (AUTO) 13.1 % (20.5-51.5); MEAN CORPUSCULAR HEMOGLOBIN 30.7 uug (23.8-33.4); MEAN CORPUSCULAR HGB CONC 33 g/dL (32.5-36.3); MEAN CORPUSCULAR VOLUME 92.7 fL (73.0-96.2); MONOCYTES # (AUTO) 0.8 K/uL (0.1-1.30); MONOCYTES % (AUTO) 6.3 % (0.0-11.0); NEUTROPHILS # (AUTO) 9.4 K/uL (1.8-8.9); NEUTROPHILS % (AUTO) 77.2 % (38.5-71.5); PLATELET COUNT (AUTO) 129 K/uL (152-348); RED BLOOD CELL COUNT(AUTO) 2.72 MIL/uL (4.06-5.63); RED CELL DISTRIBUTION WIDTH 14.2 % (12.1-16.2); WHITE BLOOD COUNT (AUTO) 12.1 K/uL (3.6-10.2)
[2024-04-17 05:43] LABS: CALCIUM 7.6 mg/dL (8.5-10.1); CARBON DIOXIDE 24 mmol/L (21-32); CHLORIDE 104 mmol/L (98-107); CREATININE 1.4 mg/dL (0.6-1.3); DIFFERENTIAL COMMENT 1; GLUCOSE 118 mg/dL (74-106); POTASSIUM 3.4 mmol/L (3.5-5.1); SODIUM SERUM 136 mmol/L (136-145); UREA NITROGEN, BLOOD 23 mg/dL (7-18)
[2024-04-17 05:44] LABS: MAGNESIUM 2.1 mg/dL (1.8-2.4); PHOSPHOROUS 3.5 mg/dL (2.5-4.9)
[2024-04-17] MEDS: POTASSIUM CHLORIDE 50 ML IV SCH (09:02)
[2024-04-17 15:49] LABS: ABG PCO2 31.9 mmHg (35.0-48.0); ABG PH 7.494 (7.340-7.440); ABG PO2 71.9 mmHg (75.0-100.0); ABG SITE RIGHT RADIAL; AaDO2 95.8 mmHg; COHb 1.3 % (0.0-3.9); MetHb 0.3 % (0.0-1.5)
[2024-04-17] MEDS: IV NS 1000 ML 1,000 ML IV PRN (18:39)
[2024-04-18] VITALS (20 sets, daily range): BP systolic 126–166; BP diastolic 46–65; TEMP 98–99.4; O2SAT 93–99
[2024-04-18 05:08] LABS: BASOPHILS # (AUTO) 0.1 K/UL (0.0-0.2); BASOPHILS % (AUTO) 0.8 % (0.0-2.0); EOSINOPHILS # (AUTO) 0.3 K/uL (0.0-0.7); EOSINOPHILS % (AUTO) 3.5 % (0.0-7.0); HEMATOCRIT 24.7 % (36.7-47.1); HEMOGLOBIN 8.2 g/dL (12.5-16.3); LYMPHOCYTES # (AUTO) 1.3 K/uL (0.8-4.8); LYMPHOCYTES % (AUTO) 15.8 % (20.5-51.5); MEAN CORPUSCULAR HEMOGLOBIN 31.1 uug (23.8-33.4); MEAN CORPUSCULAR HGB CONC 33 g/dL (32.5-36.3); MONOCYTES # (AUTO) 0.7 K/uL (0.1-1.30); MONOCYTES % (AUTO) 8.2 % (0.0-11.0); NEUTROPHILS # (AUTO) 5.9 K/uL (1.8-8.9); NEUTROPHILS % (AUTO) 71.7 % (38.5-71.5); PLATELET COUNT (AUTO) 143 K/uL (152-348); RED BLOOD CELL COUNT(AUTO) 2.65 MIL/uL (4.06-5.63); RED CELL DISTRIBUTION WIDTH 14.4 % (12.1-16.2); WHITE BLOOD COUNT (AUTO) 8.2 K/uL (3.6-10.2)
[2024-04-18 05:19] LABS: CALCIUM 7.5 mg/dL (8.5-10.1); CARBON DIOXIDE 24 mmol/L (21-32); CHLORIDE 108 mmol/L (98-107); CREATININE 1.3 mg/dL (0.6-1.3); GLUCOSE 89 mg/dL (74-106); POTASSIUM 3.7 mmol/L (3.5-5.1); SODIUM SERUM 139 mmol/L (136-145); UREA NITROGEN, BLOOD 19 mg/dL (7-18)
[2024-04-18 05:22] LABS: PHOSPHOROUS 3.7 mg/dL (2.5-4.9)
[2024-04-18 05:30] LABS: DIFFERENTIAL COMMENT 1
[2024-04-19] VITALS (31 sets, daily range): BP systolic 122–178; BP diastolic 49–78; TEMP 97.2–98.9; O2SAT 94–99
[2024-04-19 05:42] LABS: CALCIUM 6.3 mg/dL (8.5-10.1); POTASSIUM 3.3 mmol/L (3.5-5.1)
[2024-04-19 05:47] LABS: MAGNESIUM 1.6 mg/dL (1.8-2.4); PHOSPHOROUS 2.8 mg/dL (2.5-4.9)
[2024-04-19 05:54] LABS: BASOPHILS % (AUTO) 0.9 % (0.0-2.0); EOSINOPHILS # (AUTO) 0.2 K/uL (0.0-0.7); EOSINOPHILS % (AUTO) 4.3 % (0.0-7.0); HEMATOCRIT 22.6 % (36.7-47.1); LYMPHOCYTES # (AUTO) 0.9 K/uL (0.8-4.8); LYMPHOCYTES % (AUTO) 16.7 % (20.5-51.5); MEAN CORPUSCULAR HEMOGLOBIN 30.8 uug (23.8-33.4); MEAN CORPUSCULAR HGB CONC 33 g/dL (32.5-36.3); MEAN CORPUSCULAR VOLUME 93.9 fL (73.0-96.2); MONOCYTES # (AUTO) 0.7 K/uL (0.1-1.30); MONOCYTES % (AUTO) 12.6 % (0.0-11.0); NEUTROPHILS # (AUTO) 3.6 K/uL (1.8-8.9); NEUTROPHILS % (AUTO) 65.5 % (38.5-71.5); PLATELET COUNT (AUTO) 138 K/uL (152-348); RED CELL DISTRIBUTION WIDTH 14.4 % (12.1-16.2); WHITE BLOOD COUNT (AUTO) 5.4 K/uL (3.6-10.2)
[2024-04-19 05:56] LABS: HEMOGLOBIN 7.4 g/dL (12.5-16.3); RED BLOOD CELL COUNT(AUTO) 2.41 MIL/uL (4.06-5.63)
[2024-04-19 05:57] LABS: DIFFERENTIAL COMMENT 1
[2024-04-19] MEDS: PANTOPRAZOLE SODIUM 40 MG TABLET.DR PO SCH (06:45)
[2024-04-19] MEDS: MAGNESIUM SULFATE/D5W 100 ML IV SCH (10:45)
[2024-04-19] MEDS: FUROSEMIDE 20 MG/2 ML VIAL IV SCH (10:46)
[2024-04-19] MEDS: POTASSIUM CHLORIDE 50 ML IV SCH (10:46)
[2024-04-19] MEDS: MEROPENEM 1 G in IV NORMAL SALINE 100 ML IV SCH (14:44)
[2024-04-19 15:32] LABS: HEMATOCRIT 31.1 % (36.7-47.1); HEMOGLOBIN 10.4 g/dL (12.5-16.3)
[2024-04-19] MEDS: PANTOPRAZOLE SODIUM 40 MG VIAL IV SCH (21:20)
[2024-04-20] VITALS (13 sets, daily range): BP systolic 123–154; BP diastolic 49–62; TEMP 97.9–98.5; O2SAT 93–100
[2024-04-20 07:08] LABS: BASOPHILS # (AUTO) 0.1 K/UL (0.0-0.2); BASOPHILS % (AUTO) 1.1 % (0.0-2.0); EOSINOPHILS # (AUTO) 0.2 K/uL (0.0-0.7); HEMATOCRIT 27.5 % (36.7-47.1); HEMOGLOBIN 9.1 g/dL (12.5-16.3); MEAN CORPUSCULAR HEMOGLOBIN 30.2 uug (23.8-33.4); MEAN CORPUSCULAR HGB CONC 33 g/dL (32.5-36.3); MEAN CORPUSCULAR VOLUME 91.8 fL (73.0-96.2); MONOCYTES # (AUTO) 0.8 K/uL (0.1-1.30); MONOCYTES % (AUTO) 16.8 % (0.0-11.0); NEUTROPHILS # (AUTO) 2.6 K/uL (1.8-8.9); NEUTROPHILS % (AUTO) 56.1 % (38.5-71.5); PLATELET COUNT (AUTO) 154 K/uL (152-348); WHITE BLOOD COUNT (AUTO) 4.6 K/uL (3.6-10.2)
[2024-04-20 07:12] LABS: DIFFERENTIAL COMMENT 1
[2024-04-20 07:21] LABS: CALCIUM 6.8 mg/dL (8.5-10.1); CARBON DIOXIDE 24 mmol/L (21-32); CHLORIDE 113 mmol/L (98-107); CREATININE 1.1 mg/dL (0.6-1.3); GLUCOSE 83 mg/dL (74-106); POTASSIUM 3.2 mmol/L (3.5-5.1); SODIUM SERUM 145 mmol/L (136-145); UREA NITROGEN, BLOOD 14 mg/dL (7-18)
[2024-04-20] MEDS: MIRALAX 17 GM POWD.PACK PO ONE (09:58)
[2024-04-20 13:39] LABS: BAND % (MANUAL) 15 % (0-10); EOSINOPHILS % (MANUAL) 4 % (0-8); LYMPHOCYTES % (MANUAL) 23 % (20-40); MONOCYTES % (MANUAL) 15 % (2-10); NEUTROPHILS % (MANUAL) 43 % (42-75)
[2024-04-20 13:40] LABS: ANISOCYTOSIS 1+; PLATELET ESTIMATE ADEQUATE
[2024-04-20] MEDS: POTASSIUM CHLORIDE 20 MEQ TAB.PRT.SR PO ONE (16:24)
[2024-04-20] MEDS: CEFEPIME HCL 1 G in IV DEXTROSE 5% 50 ML IV SCH (22:11)
[2024-04-21] VITALS (15 sets, daily range): BP systolic 98–162; BP diastolic 47–60; TEMP 98.3–99.8; O2SAT 94–100
[2024-04-21 06:25] LABS: BASOPHILS # (AUTO) 0.1 K/UL (0.0-0.2); DIFFERENTIAL COMMENT 0; EOSINOPHILS # (AUTO) 0.5 K/uL (0.0-0.7); EOSINOPHILS % (AUTO) 7.5 % (0.0-7.0); HEMATOCRIT 27.3 % (36.7-47.1); HEMOGLOBIN 8.9 g/dL (12.5-16.3); LYMPHOCYTES # (AUTO) 1.1 K/uL (0.8-4.8); LYMPHOCYTES % (AUTO) 15.8 % (20.5-51.5); MEAN CORPUSCULAR HEMOGLOBIN 30.1 uug (23.8-33.4); MEAN CORPUSCULAR HGB CONC 33 g/dL (32.5-36.3); MEAN CORPUSCULAR VOLUME 92.5 fL (73.0-96.2); NEUTROPHILS # (AUTO) 4.3 K/uL (1.8-8.9); NEUTROPHILS % (AUTO) 61.7 % (38.5-71.5); PLATELET COUNT (AUTO) 164 K/uL (152-348); RED BLOOD CELL COUNT(AUTO) 2.95 MIL/uL (4.06-5.63); RED CELL DISTRIBUTION WIDTH 14.7 % (12.1-16.2); WHITE BLOOD COUNT (AUTO) 6.9 K/uL (3.6-10.2)
[2024-04-21 06:44] LABS: CREATININE 1.1 mg/dL (0.6-1.3); POTASSIUM 3.5 mmol/L (3.5-5.1)
[2024-04-22] VITALS (14 sets, daily range): BP systolic 108–154; BP diastolic 40–62; TEMP 97.4–98.5; O2SAT 93–99
[2024-04-22 07:06] LABS: BASOPHILS # (AUTO) 0.1 K/UL (0.0-0.2); BASOPHILS % (AUTO) 1.4 % (0.0-2.0); EOSINOPHILS # (AUTO) 0.2 K/uL (0.0-0.7); EOSINOPHILS % (AUTO) 3.1 % (0.0-7.0); HEMATOCRIT 27.6 % (36.7-47.1); HEMOGLOBIN 9.1 g/dL (12.5-16.3); LYMPHOCYTES # (AUTO) 1.6 K/uL (0.8-4.8); LYMPHOCYTES % (AUTO) 22.1 % (20.5-51.5); MEAN CORPUSCULAR HEMOGLOBIN 30.2 uug (23.8-33.4); MEAN CORPUSCULAR HGB CONC 33 g/dL (32.5-36.3); MEAN CORPUSCULAR VOLUME 91.6 fL (73.0-96.2); MONOCYTES # (AUTO) 1.4 K/uL (0.1-1.30); MONOCYTES % (AUTO) 18.3 % (0.0-11.0); NEUTROPHILS # (AUTO) 4.1 K/uL (1.8-8.9); NEUTROPHILS % (AUTO) 55.1 % (38.5-71.5); PLATELET COUNT (AUTO) 184 K/uL (152-348); RED BLOOD CELL COUNT(AUTO) 3.01 MIL/uL (4.06-5.63); RED CELL DISTRIBUTION WIDTH 14.7 % (12.1-16.2); WHITE BLOOD COUNT (AUTO) 7.5 K/uL (3.6-10.2)
[2024-04-22 07:14] LABS: CREATININE 1.1 mg/dL (0.6-1.3); DIFFERENTIAL COMMENT 1; POTASSIUM 3.5 mmol/L (3.5-5.1)
[2024-04-22 07:19] LABS: CALCIUM 7.3 mg/dL (8.5-10.1)
[2024-04-22] MEDS: POTASSIUM CHLORIDE 20 MEQ POWDER PACKET PO ONE (09:25)
[2024-04-22] MEDS: ACETAMINOPHEN 325 MG TABLET PO PRN (13:55)
[2024-04-22 13:58] LABS: BAND % (MANUAL) 1 % (0-10); EOSINOPHILS % (MANUAL) 5 % (0-8); LYMPHOCYTES % (MANUAL) 23 % (20-40); MONOCYTES % (MANUAL) 12 % (2-10); NEUTROPHILS % (MANUAL) 59 % (42-75)
[2024-04-22 13:59] LABS: ANISOCYTOSIS 1+; PLATELET ESTIMATE ADEQUATE
[2024-04-22] MEDS: PANTOPRAZOLE SODIUM 40 MG TABLET.DR PO SCH (17:27)
[2024-04-23 05:31] VITALS: BP 131/55; TEMP 98.3; O2SAT 96
[2024-04-23 06:47] LABS: CALCIUM 7.3 mg/dL (8.5-10.1); CREATININE 1.1 mg/dL (0.6-1.3); POTASSIUM 3.4 mmol/L (3.5-5.1)
[2024-04-23 06:50] LABS: BASOPHILS # (AUTO) 0.1 K/UL (0.0-0.2); EOSINOPHILS # (AUTO) 0.2 K/uL (0.0-0.7); EOSINOPHILS % (AUTO) 3.4 % (0.0-7.0); HEMATOCRIT 29.8 % (36.7-47.1); HEMOGLOBIN 9.9 g/dL (12.5-16.3); LYMPHOCYTES # (AUTO) 1.5 K/uL (0.8-4.8); MEAN CORPUSCULAR HEMOGLOBIN 30.4 uug (23.8-33.4); MEAN CORPUSCULAR HGB CONC 33 g/dL (32.5-36.3); MEAN CORPUSCULAR VOLUME 91.7 fL (73.0-96.2); MONOCYTES # (AUTO) 1.2 K/uL (0.1-1.30); MONOCYTES % (AUTO) 16.5 % (0.0-11.0); NEUTROPHILS # (AUTO) 4.1 K/uL (1.8-8.9); NEUTROPHILS % (AUTO) 58.1 % (38.5-71.5); PLATELET COUNT (AUTO) 172 K/uL (152-348); RED BLOOD CELL COUNT(AUTO) 3.25 MIL/uL (4.06-5.63); RED CELL DISTRIBUTION WIDTH 14.3 % (12.1-16.2)
[2024-04-23 06:51] LABS: DIFFERENTIAL COMMENT 1
[2024-04-23 07:31] VITALS: O2SAT 96
[2024-04-23 07:37] LABS: RETICULOCYTE COUNT 0.6 % (0.4-2.2)
[2024-04-23 07:51] VITALS: O2SAT 99
[2024-04-23 07:57] LABS: IRON, SERUM 32 ug/dL (50-175)
[2024-04-23 08:53] LABS: FERRITIN 241 ng/mL (26-388)
[2024-04-23] MEDS: POTASSIUM CHLORIDE 20 MEQ POWDER PACKET PO ONE (09:34)
[2024-04-23 17:08] LABS: BAND % (MANUAL) 25 % (0-10); NEUTROPHILS % (MANUAL) 33 % (42-75)
[2024-04-23 17:09] LABS: ANISOCYTOSIS 1+; BASOPHILS % (MANUAL) 1 % (0-2); EOSINOPHILS % (MANUAL) 6 % (0-8); LYMPHOCYTES % (MANUAL) 17 % (20-40); MONOCYTES % (MANUAL) 18 % (2-10); PLATELET ESTIMATE ADEQUATE
[2024-04-23 17:12] LABS: BAND % (MANUAL) 25 % (0-10); LYMPHOCYTES % (MANUAL) 17 % (20-40); NEUTROPHILS % (MANUAL) 33 % (42-75)
== END 2024-04-23 13:32 | DRG 871 ==
LOC: ER 13:50 → CCU 17:30 → TELE3 04-19 08:00 → MEDSURG3 04-22 10:25
PROVIDERS: ADMIT Internal Medicine; ATTEND Internal Medicine
PROC: 5A09457 Assistance with Respiratory Ventilation, 24-96 Consecutive Hours, Continuous Positive Airway Pressure (ICD-10-PCS; principal; 2024-04-08)
PROC: 02HV33Z Insertion of Infusion Device into Superior Vena Cava, Percutaneous Approach (ICD-10-PCS; 2024-04-09)
PROC: 30243N1 Transfusion of Nonautologous Red Blood Cells into Central Vein, Percutaneous Approach (ICD-10-PCS; 2024-04-19)
DX: A41.9 Sepsis, unspecified organism (principal); G93.41 Metabolic encephalopathy; E43 Unspecified severe protein-calorie malnutrition; J96.01 Acute respiratory failure with hypoxia; N17.0 Acute kidney failure with tubular necrosis; I50.31 Acute diastolic (congestive) heart failure; R65.21 Severe sepsis with septic shock; N39.0 Urinary tract infection, site not specified; D68.59 Other primary thrombophilia; I69.054 Hemiplegia and hemiparesis following nontraumatic subarachnoid hemorrhage affecting left non-dominant side; E87.20 Acidosis, unspecified; F01.54 Vascular dementia, unspecified severity, with anxiety; F01.53 Vascular dementia, unspecified severity, with mood disturbance; K92.1 Melena; I13.0 Hypertensive heart and chronic kidney disease with heart failure and stage 1 through stage 4 chronic kidney disease, or unspecified chronic kidney disease; E87.0 Hyperosmolality and hypernatremia; K56.7 Ileus, unspecified; E03.9 Hypothyroidism, unspecified; E78.5 Hyperlipidemia, unspecified; G40.909 Epilepsy, unspecified, not intractable, without status epilepticus; R19.7 Diarrhea, unspecified; D64.9 Anemia, unspecified; E88.09 Other disorders of plasma-protein metabolism, not elsewhere classified; N18.2 Chronic kidney disease, stage 2 (mild); R13.12 Dysphagia, oropharyngeal phase; E87.6 Hypokalemia; E11.22 Type 2 diabetes mellitus with diabetic chronic kidney disease; M89.8X9 Other specified disorders of bone, unspecified site; B96.89 Other specified bacterial agents as the cause of diseases classified elsewhere; J69.0 Pneumonitis due to inhalation of food and vomit; N32.81 Overactive bladder; K82.8 Other specified diseases of gallbladder; N40.1 Benign prostatic hyperplasia with lower urinary tract symptoms; Z74.09 Other reduced mobility; K21.9 Gastro-esophageal reflux disease without esophagitis; Z79.890 Hormone replacement therapy; Z88.2 Allergy status to sulfonamides; N20.0 Calculus of kidney; Z87.891 Personal history of nicotine dependence
CPT/HCPCS: 36415; 36569; 36600; 70030-TC; 71045; 71275; 74018; 74230; 76700; 82746; 82803; 83550; 83605; 83690; 83735; 84100; 84443; 84484; 85018; 85025; 85730; 86140; 86850; 86900; 86901; 86920; 87040; 93005; 93307; 94002; 94640; 94664; 94760; 99082-TC; A4606; A4663; C1758; C9113; G0378; J0692; J1165; J1644; J1650; J1815; J1940; J2185; J2270; J2405; J2543; J2919; J3370; J3475; J3480; J3490; J3590; J7040; J7042; J7050; J7060; J7070; P9016; P9047; Q9967